=== PATIENT | male | born 2000 | race African-American/Black ===

== ENCOUNTER 2024-10-26 17:11 | Emergency (ER) | payer OTHER ==
[~2024-10-26] VITALS: Ht 188 cm; Wt 79.5 kg
[2024-10-26] MEDS: IBUPROFEN 600 MG TABLET PO ONE (20:22)
[2024-10-26 20:26] VITALS: BP 119/75; PULSE 77; RESP 16; TEMP 98.3; O2SAT 100
== END 2024-10-26 22:44 ==
LOC: EMS 17:47
DX: S83.91XA Sprain of unspecified site of right knee, initial encounter (principal); Y04.0XXA Assault by unarmed brawl or fight, initial encounter; Y93.89 Activity, other specified; Y92.89 Other specified places as the place of occurrence of the external cause; Y99.8 Other external cause status
CPT/HCPCS: 99284; 73030-TC; 73562-TC; Z7502; Z7610